=== PATIENT | male | born 1980 ===

== ENCOUNTER 2025-05-29 09:58 | Day surgery (SDC) | payer BC ==
[~2025-05-29 09:58] MED LIST: Midazolam 1 MG/ML 2 ML SDV ONE; Propofol 200 MG/20 ML SDV ONE; Sodium Chloride 0.9% 10 ML Syringe FLUSH PRN
[2025-05-29] MEDS: Lactated Ringers 1,000 ML IV SCH (11:12)
== END 2025-05-29 12:34 | disposition home or self-care (01) ==
LOC: LL.SDS 09:58
PROVIDERS: ATTEND Surgery
DX: Z12.11 Encounter for screening for malignant neoplasm of colon (principal); D12.3 Benign neoplasm of transverse colon; D12.4 Benign neoplasm of descending colon; R19.5 Other fecal abnormalities; I10 Essential (primary) hypertension; E66.01 Morbid (severe) obesity due to excess calories; Z88.1 Allergy status to other antibiotic agents; Z79.899 Other long term (current) drug therapy; Z79.84 Long term (current) use of oral hypoglycemic drugs; Z87.891 Personal history of nicotine dependence; Z68.42 Body mass index [BMI] 45.0-49.9, adult; Z86.0100 Personal history of colon polyps, unspecified
CPT/HCPCS: 00811; J2250; J2704; J7120